=== PATIENT | male | born 1990 | race African-American/Black ===

== ENCOUNTER 2016-07-08 20:23 | Emergency (ER) | payer SELFPAY ==
[~2016-07-08] VITALS: Ht 172.7 cm; Wt 65.8 kg
[~2016-07-08 20:23] MED LIST: ALBU8.5H2 IH; AMOX500C2 PO; FLT05NA16; HYDR-3812 PO; IBUP200C; INHA1INH8 MC
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
[2016-07-08] MEDS ORDERED: HYDR-3812 PO (21:24)
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
[2016-07-08 21:30] VITALS: BP 118/67
[2016-07-08] MEDS ORDERED: HYDROcodone/APAP 5 MG/325 MG (LORTAB) TAB PO ONE (21:30)
== END 2016-07-08 21:30 | disposition home or self-care (01) ==
LOC: EDUNIT# 20:23 → ER 20:26
DX: S62.241A Displaced fracture of shaft of first metacarpal bone, right hand, initial encounter for closed fracture (principal); S62.320A Displaced fracture of shaft of second metacarpal bone, right hand, initial encounter for closed fracture; Z87.891 Personal history of nicotine dependence; W22.01XA Walked into wall, initial encounter; Y92.009 Unspecified place in unspecified non-institutional (private) residence as the place of occurrence of the external cause
CPT/HCPCS: 29125; 73130